=== PATIENT | male | born 1985 | race Caucasian/White ===

== ENCOUNTER 2016-06-16 13:34 | Emergency (ER) | payer SELFPAY ==
[~2016-06-16] VITALS: Wt 86.2 kg
[~2016-06-16 13:34] MED LIST: HYDROCODONE BIT1 T11 PO; KEFLEX500 MG PO; MOTRIN600 MG PO; PENICILLIN VK500 MG PO; Peridex 473 ML473 ML PO
[2016-06-16] MEDS ORDERED: HYDROCODONE BIT1 T11 PO (15:46)
[2016-06-16] MEDS ORDERED: Motrin,Rufen800 MG PO ×2 (15:46→15:49)
== END 2016-06-16 15:45 | disposition home or self-care (01) ==
LOC: ED 13:34
DX: M25.462 Effusion, left knee (principal); F17.200 Nicotine dependence, unspecified, uncomplicated

== ENCOUNTER 2016-07-13 11:43 | Emergency (ER) | payer SELFPAY ==
[~2016-07-13] VITALS: Ht 175.2 cm; Wt 90.7 kg
[~2016-07-13 11:43] MED LIST changes: +Motrin,Rufen800 MG PO
[2016-07-13] MEDS ORDERED: NAPROSYN500 MG PO (12:04)
[2016-07-13] MEDS ORDERED: CLINDAMYCIN150 MG PO (12:04)
[2016-07-13] MEDS ORDERED: LIDOCAINE HCL100 M1 MM (12:04)
[2016-07-13] MEDS ORDERED: Peridex 473 ML473 ML PO (12:04)
== END 2016-07-13 12:11 | disposition home or self-care (01) ==
LOC: ED 11:43
DX: K04.7 Periapical abscess without sinus (principal); R03.0 Elevated blood-pressure reading, without diagnosis of hypertension; F17.200 Nicotine dependence, unspecified, uncomplicated

== ENCOUNTER 2016-07-14 13:33 | Emergency (ER) | payer SELFPAY ==
[~2016-07-14] VITALS: Ht 175.2 cm; Wt 90.7 kg
[~2016-07-14 13:33] MED LIST changes: +CLINDAMYCIN150 MG PO; +LIDOCAINE HCL100 M1 MM; +NAPROSYN500 MG PO
[2016-07-14 14:13] LABS: BASO # 0.1 10*3/uL (0.0-0.1); BASO % 0.6 % (0.0-1.0); EOS # 0.1 10*3/uL (0.0-0.4); EOS % 0.9 % (1.0-4.0); HEMATOCRIT 38.8 % (42.0-52.0); HEMOGLOBIN 13.6 g/dl (14.0-18.0); LYMPH # 1.1 10*3/uL (1.3-4.4); LYMPH % 12.9 % (27.0-41.0); MEAN CELL VOLUME 88.4 fl (80.0-94.0); MEAN CORPUSCULAR HGB CONC 35.1 g/dl (33.0-37.0); MONO # 0.7 10*3/uL (0.1-1.0); MONO % 8.5 % (3.0-9.0); NEUT # 6.3 10*3/uL (2.3-7.9); NEUT % 76.7 % (47.0-73.0); PLATELET COUNT AUTOMATED 149 10*3/uL (130-400); RED BLOOD COUNT 4.39 10*6/uL (4.50-5.90); RED CELL DISTRI WIDTH 12.9 % (0-14.5); WHITE BLOOD COUNT 8.2 10*3/uL (4.8-10.8)
[2016-07-14 14:29] LABS: ALKALINE PHOSPHATASE 66 U/L (45-117); BILIRUBIN, TOTAL 0.6 mg/dl (0.2-1.0); BUN 13 mg/dl (7-24); CARBON DIOXIDE 29 mmol/L (21-32); CHLORIDE 107 mmol/L (98-107); EST GLOM FILT AFRICAN AMERICAN > 60 ml/min; GLUCOSE 85 mg/dL (65-99); POTASSIUM 4.2 mmol/L (3.5-5.1); SGOT/AST 17 IU/L (3-35); SGPT/ALT 18 U/L (12-78); SODIUM 140 mmol/L (136-145); TOTAL PROTEIN 6.8 gm/dL (6.4-8.2)
[2016-07-14 16:23] LABS: BILIRUBIN NEGATIVE (NEGATIVE); BLOOD NEGATIVE (NEGATIVE); CLARITY CLEAR (CLEAR); COLOR YELLOW (YELLOW); GLUCOSE NEGATIVE (NEGATIVE); KETONE 1+ (NEGATIVE); LEUKO ESTERASE NEGATIVE (NEGATIVE); NITRITE NEGATIVE (NEGATIVE); PH 5.5 (5.0-9.0); PROTEIN NEGATIVE (NEGATIVE); SPECIFIC GRAVITY <= 1.005 (1.005-1.030); UROBILINOGEN 0.2 E.U./dl (0.2-1.0)
[2016-07-14 16:29] LABS: BACTERIA TRACE; EPITHELIAL CELLS 0-2; RBC 0-2 rbc/hpf (0-2); URINE REFLEX COMMENT NO (NO); WBC 0-2 wbc/hpf (0-5)
== END 2016-07-14 19:40 | disposition short-term general hospital (02) ==
LOC: ED 13:33
PROVIDERS: Emergency Medicine
DX: L03.211 Cellulitis of face (principal); K04.7 Periapical abscess without sinus